=== PATIENT | male | born 1975 | race Caucasian/White ===

== ENCOUNTER 2020-08-17 12:22 | Observation (INO) ==
[2020-08-17] MEDS ORDERED: FUROSEMIDE 40 MG/4 ML VIAL IV STA (12:42)
[2020-08-17 13:09] LABS: Basophils # 0.1 10*3/uL (0.0-0.2); Basophils % 0.5 % (0.0-0.8); Eosinophils % 0.4 % (0.00-10.9); Hematocrit 36.4 VOL% (42.0-52.0); Hemoglobin 12.8 GM/DL (14.0-18.0); Immature Granulocytes % 0.6 %; Immature Granulocytes Absolute 0.06 #; Lymphocytes # 1.5 10*3/uL (1.4-4.0); Lymphocytes % 15.1 % (21.2-54.2); Mean Corpuscular HGB Conc 35.2 GM/DL (32-36); Mean Corpuscular Volume 93.8 FL (87-102); Mean Platelet Volume 11.2 FL (9.6-12.0); Monocytes % 7.6 % (1.7-12.7); Neutrophils % 75.8 % (38.7-73.9); Platelet Count 125 T/CUMM (130-400); Red Blood Count 3.88 MC/CUMM (3.8-5.5); Red Cell Distribution Width 13.7 % (9.3-17.3); White Blood Count 9.9 T/CUMM (4-12)
[2020-08-17 13:14] LABS: INR 1.2
[2020-08-17 13:27] LABS: Apearance,Urine CLEAR (Clear); Bilirubin,Urine Small mg/dL (Negative); Blood, Urine Negative (Negative); Glucose,Urine (UA) Negative (Negative); Hyaline Casts,Urine 35 /LPF (0-3); Ketones,Urine Negative (Negative); Mucus,Urine Moderate /LPF (Occasional); Nitrite,Urine Negative (Negative); Protein,Urine 30 MG/DL; RBC,Urine 1 /HPF (0-4); Squamous Epithelial Cell,Urine Occasional /HPF (0-10); Urine Color Amber (Yellow); Urine Specific Gravity 1.017 (1.001-1.035); WBC,Urine 3 /HPF (0-6)
[2020-08-17] MEDS ORDERED: SODIUM CHLORIDE 0.9% 1,000 ML IV STA (13:29)
[2020-08-17 13:43] LABS: Alanine Aminotransferase 31 U/L (16-61); Albumin 2.1 G/DL (3.4-5.0); Alkaline Phosphatase 128 U/L (45-117); Aspartate Amino Transferase 75 U/L (0-37); Blood Urea Nitrogen 5 MG/DL (7-18); Calcium 8.2 MG/DL (8.5-10.1); Estimated Glom Filtration Rate 105 ML/MIN; Glucose 151 MG/DL (74-106); Osmolality,Calculated 259.8 MOS/KG (273-304); Total Protein 8.3 G/DL (6.4-8.3)
[2020-08-17] MEDS ORDERED: cefTRIAXone 1,000 MG in SODIUM CHLORIDE 0.9% 100 ML IV STA (15:29)
[2020-08-17] MEDS ORDERED: BISACODYL 5 MG TABLET PO PRN (15:56)
[2020-08-17] MEDS ORDERED: NICOTINE 21 MG/24 HR PATCH TRANSDERM PRN (15:56)
[2020-08-17] MEDS ORDERED: DOCUSATE SODIUM 100 MG CAPSULE PO PRN (15:56)
[2020-08-17] MEDS ORDERED: MORPHINE 4 MG/1 ML VIAL IV PRN (15:56)
[2020-08-17] MEDS ORDERED: GLUCAGON 1 MG VIAL IM PRN (15:56)
[2020-08-17] MEDS ORDERED: ZALEPLON 5 MG CAPSULE PO PRN (15:56)
[2020-08-17] MEDS ORDERED: PROMETHAZINE 25 MG/1 ML VIAL IM PRN (15:56)
[2020-08-17] MEDS ORDERED: DEXTROSE 50% 25 GM/50 ML VIAL IV PRN (15:56)
[2020-08-17] MEDS ORDERED: traZODone 50 MG TABLET PO PRN (15:56)
[2020-08-17] MEDS ORDERED: diphenhydrAMINE CAP 25 MG CAPSULE PO PRN (15:56)
[2020-08-17] MEDS ORDERED: SIMETHICONE CHEW 125 MG TABLET PO PRN (15:56)
[2020-08-17] MEDS ORDERED: LACTULOSE 20 GM/30 ML UDCUP PO PRN (15:56)
[2020-08-17] MEDS ORDERED: CALCIUM CARBONATE CHEW 500 MG TABLET PO PRN (15:56)
[2020-08-17] MEDS ORDERED: ALUMINUM/MAGNES/SIMETH MAX STR 30 ML UDCUP PO PRN (15:56)
[2020-08-17] MEDS ORDERED: guaiFENesin/DM ER 600-30 MG TABLET PO PRN (15:56)
[2020-08-17] MEDS ORDERED: hydrALAZINE 20 MG/1 ML VIAL IV PRN (15:56)
[2020-08-17] MEDS ORDERED: ONDANSETRON 4 MG/2 ML VIAL IV PRN (15:56)
[2020-08-17] MEDS ORDERED: MAGNESIUM SULF RIDER 2 GM in PREMIX 1 EACH IV PRN (16:01)
[2020-08-17] MEDS ORDERED: MAGNESIUM SULF RIDER 4 GM in PREMIX 1 EACH IV PRN (16:01)
[2020-08-17] MEDS: CIPROFLOXACIN INJ 400 MG in PREMIX 1 EACH IV SCH (17:43)
[2020-08-17 18:42] LABS: Barbiturates Screen,Urine Negative (Negative); Benzodiazepines Screen,Urine Negative (Negative); Cannabinoid Screen,Urine Negative (Negative); Opiate Screen,Urine Negative (Negative); Phencyclidine Screen,Urine Negative (Negative)
[2020-08-17] MEDS: metroNIDAZOLE INJ 500 MG in PREMIX 1 EACH IV SCH (18:55)
[2020-08-17 19:22] LABS: HIV Antigen/Antibody Result Nonreactive (Nonreactive)
[2020-08-17] MEDS: METOPROLOL TARTRATE 25 MG TABLET PO SCH (20:37)
[2020-08-17] MEDS: POTASSIUM CHLORIDE 20 MEQ TABLET PO PRN ×2 (20:37→22:41)
[2020-08-17] MEDS: PANTOPRAZOLE 40 MG TABLET PO SCH (20:37)
[2020-08-17] MEDS: SPIRONOLACTONE 25 MG TABLET PO SCH (20:37)
[2020-08-17] MEDS: chlordiazePOXIDE 25 MG CAPSULE PO SCH (22:41)
[2020-08-18] MEDS: POTASSIUM CHLORIDE 20 MEQ TABLET PO PRN ×2 (00:44→02:58)
[2020-08-18] MEDS: metroNIDAZOLE INJ 500 MG in PREMIX 1 EACH IV SCH ×3 (00:45→12:56)
[2020-08-18] MEDS: CIPROFLOXACIN INJ 400 MG in PREMIX 1 EACH IV SCH (04:27)
[2020-08-18 05:19] LABS: Basophils # 0.1 10*3/uL (0.0-0.2); Basophils % 0.7 % (0.0-0.8); Eosinophils # 0.1 10*3/uL (0.0-0.87); Eosinophils % 1.2 % (0.00-10.9); Hematocrit 32.2 VOL% (42.0-52.0); Hemoglobin 11.3 GM/DL (14.0-18.0); Immature Granulocytes % 0.6 %; Immature Granulocytes Absolute 0.04 #; Lymphocytes # 1.6 10*3/uL (1.4-4.0); Lymphocytes % 23.6 % (21.2-54.2); Mean Corpuscular HGB Conc 35.1 GM/DL (32-36); Mean Platelet Volume 10.8 FL (9.6-12.0); Monocytes % 9.6 % (1.7-12.7); Neutrophils % 64.3 % (38.7-73.9); Platelet Count 106 T/CUMM (130-400); Red Blood Count 3.39 MC/CUMM (3.8-5.5); Red Cell Distribution Width 13.9 % (9.3-17.3); White Blood Count 6.9 T/CUMM (4-12)
[2020-08-18] MEDS: chlordiazePOXIDE 25 MG CAPSULE PO SCH (05:30)
[2020-08-18 05:45] LABS: Hypochromasia 1+; Microcytosis 1+; Platelet Estimate Decreased
[2020-08-18 05:47] LABS: Folate 1.6 NG/ML (5.4-24.0)
[2020-08-18 06:00] LABS: Thyroid Stimulating Hormone 4.68 uIU/ml (0.358-3.74)
[2020-08-18 06:09] LABS: Albumin 1.7 G/DL (3.4-5.0); Bilirubin,Total 2.5 MG/DL (0.2-1.0); Calcium 7.2 MG/DL (8.5-10.1); Osmolality,Calculated 265.2 MOS/KG (273-304); Risk Ratio 5.82; Total Protein 6.6 G/DL (6.4-8.3); VLDL CHOLESTEROL 20.2 MG/DL
[2020-08-18 06:27] LABS: Hepatitis B Core IgM Quant 0.27 Index; Hepatitis B Surface Ag Quant < 0.10 Index; Hepatitis B Surface Ag Result Negative (Negative); Hepatitis C Virus Ab Quant 0.19 Index; Hepatitis C Virus Ab Result Negative (Negative)
[2020-08-18] MEDS ORDERED: FUROSEMIDE 40 MG/4 ML VIAL IV SCH (08:00)
[2020-08-18] MEDS: PANTOPRAZOLE 40 MG TABLET PO SCH (08:17)
[2020-08-18] MEDS: SPIRONOLACTONE 25 MG TABLET PO SCH (08:17)
[2020-08-18] MEDS: METOPROLOL TARTRATE 25 MG TABLET PO SCH (08:17)
[2020-08-18] MEDS ORDERED: THIAMINE 100 MG TABLET PO SCH (09:00)
[2020-08-18] MEDS ORDERED: CLOPIDOGREL 75 MG TABLET PO SCH (09:00)
[2020-08-18] MEDS ORDERED: amLODIPine 10 MG TABLET PO SCH (09:00)
[2020-08-18] MEDS ORDERED: MULTIVITAMIN (CENTRUM) TABLET PO SCH (09:00)
[2020-08-18] MEDS ORDERED: FOLIC ACID 1 MG TABLET PO SCH (09:00)
[2020-08-18 09:52] LABS: Apearance,Urine CLEAR (Clear); Bacteria,Urine Occasional /HPF (Few); Bilirubin,Urine Negative (Negative); Blood, Urine Negative (Negative); Glucose,Urine (UA) Negative (Negative); Ketones,Urine Negative (Negative); Mucus,Urine Occasional /LPF (Occasional); Nitrite,Urine Negative (Negative); Protein,Urine Negative; Urine Color Amber (Yellow); WBC,Urine 1 /HPF (0-6)
[2020-08-18 10:15] LABS: % Iron Saturation 24.9 % (18-50)
[2020-08-18] MEDS ORDERED: POTASSIUM CHLORIDE 20 MEQ TABLET PO ONE (11:38)
[2020-08-18] MEDS ORDERED: IRON SUCROSE 300 MG in SODIUM CHLORIDE 0.9% 100 ML IV ONE (12:00)
[2020-08-18 12:07] LABS: Free T4 (Free Thyroxine) 1.29 NG/DL (0.76-1.46)
[2020-08-18 12:29] VITALS: BP 118/68
== END 2020-08-18 15:45 | disposition home or self-care (01) ==
LOC: N.ED 12:22 → N.EDINP 12:22 → SUATTDRO 16:05 → N.3E 16:28
PROVIDERS: ADMIT Nurse Practitioner; ATTEND Internal Medicine

== ENCOUNTER 2020-08-28 11:39 | Inpatient (IN) ==
[2020-08-28 13:21] LABS: Basophils # 0.1 10*3/uL (0.0-0.2); Basophils % 0.7 % (0.0-0.8); Eosinophils # 0.1 10*3/uL (0.0-0.87); Eosinophils % 0.6 % (0.00-10.9); Hematocrit 37.4 VOL% (42.0-52.0); Hemoglobin 12.6 GM/DL (14.0-18.0); Immature Granulocytes % 0.5 %; Immature Granulocytes Absolute 0.05 #; Lymphocytes # 1.7 10*3/uL (1.4-4.0); Lymphocytes % 17.2 % (21.2-54.2); Mean Corpuscular HGB Conc 33.7 GM/DL (32-36); Mean Corpuscular Volume 98.7 FL (87-102); Mean Platelet Volume 10.8 FL (9.6-12.0); Monocytes % 6.7 % (1.7-12.7); Neutrophils % 74.3 % (38.7-73.9); Platelet Count 210 T/CUMM (130-400); Red Blood Count 3.79 MC/CUMM (3.8-5.5); Red Cell Distribution Width 13.5 % (9.3-17.3); White Blood Count 9.7 T/CUMM (4-12)
[2020-08-28 13:32] LABS: INR 1.2; PT Patient Result 13.1 SECS (9.8-11.9)
[2020-08-28 13:54] LABS: Bilirubin,Total 2.6 MG/DL (0.2-1.0); Calcium 8.1 MG/DL (8.5-10.1); Osmolality,Calculated 269.1 MOS/KG (273-304); Total Protein 7.8 G/DL (6.4-8.3)
[2020-08-28 14:10] LABS: Bacteria,Urine Occasional /HPF (Few); Bilirubin,Urine Small mg/dL (Negative); Blood, Urine Negative (Negative); Glucose,Urine (UA) Negative (Negative); Hyaline Casts,Urine 147 /LPF (0-3); Ketones,Urine Negative (Negative); Mucus,Urine Few /LPF (Occasional); Nitrite,Urine Negative (Negative); Protein,Urine 30 MG/DL; RBC,Urine 3 /HPF (0-4); Squamous Epithelial Cell,Urine Occasional /HPF (0-10); Urine Appearance Slightly Hazy (Clear); Urine Color Amber (Yellow); Urine Specific Gravity 1.021 (1.001-1.035); WBC,Urine 19 /HPF (0-6)
[2020-08-28] MEDS ORDERED: DEXTROSE 50% 25 GM/50 ML VIAL IV PRN (14:32)
[2020-08-28] MEDS ORDERED: GLUCAGON 1 MG VIAL IM PRN (14:32)
[2020-08-28] MEDS: cefTRIAXone 1,000 MG in SYRINGE 1 EACH IV SCH (17:52)
[2020-08-28] MEDS ORDERED: METOPROLOL TARTRATE 25 MG TABLET PO SCH (21:00)
[2020-08-28] MEDS ORDERED: SPIRONOLACTONE 25 MG TABLET PO SCH (21:00)
[2020-08-28] MEDS: MORPHINE 4 MG/1 ML VIAL IV PRN (21:11)
[2020-08-28] MEDS: TAMSULOSIN 0.4 MG CAPSULE PO SCH (21:11)
[2020-08-29 05:13] LABS: Basophils % 0.6 % (0.0-0.8); Eosinophils % 0.6 % (0.00-10.9); Hematocrit 35.5 VOL% (42.0-52.0); Immature Granulocytes % 0.4 %; Immature Granulocytes Absolute 0.03 #; Lymphocytes # 1.4 10*3/uL (1.4-4.0); Lymphocytes % 19.7 % (21.2-54.2); Mean Corpuscular HGB Conc 33.8 GM/DL (32-36); Mean Corpuscular Volume 95.7 FL (87-102); Mean Platelet Volume 11.1 FL (9.6-12.0); Monocytes % 7.8 % (1.7-12.7); Neutrophils % 70.9 % (38.7-73.9); Platelet Count 168 T/CUMM (130-400); Red Blood Count 3.71 MC/CUMM (3.8-5.5); Red Cell Distribution Width 13.3 % (9.3-17.3); White Blood Count 7.1 T/CUMM (4-12)
[2020-08-29 06:03] LABS: Albumin 1.8 G/DL (3.4-5.0); Bilirubin,Total 1.7 MG/DL (0.2-1.0); Calcium 7.8 MG/DL (8.5-10.1); Total Protein 6.9 G/DL (6.4-8.3)
[2020-08-29] MEDS ORDERED: MAGNESIUM SULF RIDER 4 GM in PREMIX 1 EACH IV ONE (07:04)
[2020-08-29] MEDS ORDERED: amLODIPine 10 MG TABLET PO SCH (09:00)
[2020-08-29] MEDS: THIAMINE 100 MG TABLET PO SCH (09:33)
[2020-08-29] MEDS: FOLIC ACID 1 MG TABLET PO SCH (09:33)
[2020-08-29] MEDS: PANTOPRAZOLE 40 MG TABLET PO SCH (09:33)
[2020-08-29] MEDS: SPIRONOLACTONE 100 MG TABLET PO SCH (09:33)
[2020-08-29] MEDS: FUROSEMIDE 40 MG TABLET PO SCH (09:33)
[2020-08-29] MEDS: TAMSULOSIN 0.4 MG CAPSULE PO SCH ×2 (09:33→21:13)
[2020-08-29] MEDS: THIAMINE 200 MG/2 ML VIAL IV SCH (09:37)
[2020-08-29] MEDS: FOLIC ACID INJ 1 MG in SYRINGE 1 EACH IV SCH (10:59)
[2020-08-29] MEDS: cefTRIAXone 1,000 MG in SYRINGE 1 EACH IV SCH (15:42)
[2020-08-29] MEDS: ZOLPIDEM 5 MG TABLET PO PRN (21:13)
[2020-08-30 04:56] LABS: Basophils % 0.4 % (0.0-0.8); Eosinophils # 0.1 10*3/uL (0.0-0.87); Hematocrit 31.3 VOL% (42.0-52.0); Hemoglobin 10.9 GM/DL (14.0-18.0); Immature Granulocytes % 0.1 %; Immature Granulocytes Absolute 0.01 #; Lymphocytes # 1.5 10*3/uL (1.4-4.0); Lymphocytes % 21.4 % (21.2-54.2); Mean Corpuscular HGB Conc 34.8 GM/DL (32-36); Mean Corpuscular Volume 93.7 FL (87-102); Mean Platelet Volume 10.7 FL (9.6-12.0); Neutrophils % 69.1 % (38.7-73.9); Platelet Count 158 T/CUMM (130-400); Red Blood Count 3.34 MC/CUMM (3.8-5.5); Red Cell Distribution Width 13.2 % (9.3-17.3); White Blood Count 6.8 T/CUMM (4-12)
[2020-08-30 05:23] LABS: Albumin 1.7 G/DL (3.4-5.0); Bilirubin,Total 1.8 MG/DL (0.2-1.0); Calcium 7.9 MG/DL (8.5-10.1); Osmolality,Calculated 262.5 MOS/KG (273-304); Total Protein 6.8 G/DL (6.4-8.3)
[2020-08-30] MEDS: POTASSIUM CHLORIDE 20 MEQ TABLET PO SCH ×3 (09:04→20:53)
[2020-08-30] MEDS: MAGNESIUM OXIDE 400 MG TABLET PO SCH ×2 (09:05→20:53)
[2020-08-30] MEDS: THIAMINE 100 MG TABLET PO SCH (09:05)
[2020-08-30] MEDS: FOLIC ACID 1 MG TABLET PO SCH (09:05)
[2020-08-30] MEDS: TAMSULOSIN 0.4 MG CAPSULE PO SCH ×2 (09:06→20:54)
[2020-08-30] MEDS: SPIRONOLACTONE 100 MG TABLET PO SCH (09:06)
[2020-08-30] MEDS: FUROSEMIDE 40 MG TABLET PO SCH (09:06)
[2020-08-30] MEDS: PANTOPRAZOLE 40 MG TABLET PO SCH (09:06)
[2020-08-30] MEDS: FOLIC ACID INJ 1 MG in SYRINGE 1 EACH IV SCH (09:07)
[2020-08-30] MEDS: THIAMINE 200 MG/2 ML VIAL IV SCH (09:08)
[2020-08-30] MEDS: MORPHINE 4 MG/1 ML VIAL IV PRN ×2 (10:58→21:07)
[2020-08-30] MEDS ORDERED: ONDANSETRON 4 MG/2 ML VIAL IV PRN (11:06)
[2020-08-30] MEDS: cefTRIAXone 1,000 MG in SYRINGE 1 EACH IV SCH (15:20)
[2020-08-30] MEDS: ZOLPIDEM 5 MG TABLET PO PRN (23:34)
[2020-08-31] MEDS: POTASSIUM CHLORIDE 20 MEQ TABLET PO SCH ×2 (04:10→10:20)
[2020-08-31 05:57] LABS: Basophils % 0.3 % (0.0-0.8); Eosinophils # 0.1 10*3/uL (0.0-0.87); Eosinophils % 0.9 % (0.00-10.9); Hematocrit 33.2 VOL% (42.0-52.0); Hemoglobin 11.3 GM/DL (14.0-18.0); Immature Granulocytes % 0.5 %; Immature Granulocytes Absolute 0.05 #; Lymphocytes # 1.6 10*3/uL (1.4-4.0); Lymphocytes % 15.8 % (21.2-54.2); Mean Corpuscular Volume 94.6 FL (87-102); Mean Platelet Volume 11.2 FL (9.6-12.0); Monocytes % 7.6 % (1.7-12.7); Neutrophils % 74.9 % (38.7-73.9); Platelet Count 172 T/CUMM (130-400); Red Blood Count 3.51 MC/CUMM (3.8-5.5); Red Cell Distribution Width 13.2 % (9.3-17.3); White Blood Count 10.4 T/CUMM (4-12)
[2020-08-31 06:27] LABS: Calcium 7.9 MG/DL (8.5-10.1); Osmolality,Calculated 255.9 MOS/KG (273-304)
[2020-08-31 06:32] LABS: Albumin 1.8 G/DL (3.4-5.0); Bilirubin,Total 2.5 MG/DL (0.2-1.0); Calcium 8.1 MG/DL (8.5-10.1); Osmolality,Calculated 255.9 MOS/KG (273-304); Total Protein 7.1 G/DL (6.4-8.3)
[2020-08-31] MEDS ORDERED: ALBUMIN 25% 50 GM in PREMIX 1 EACH IV ONE (08:31)
[2020-08-31] MEDS ORDERED: POTASSIUM CHLORIDE 20 MEQ TABLET PO SCH (09:00)
[2020-08-31 10:07] LABS: Neutrophils,Peritoneal Fluid 29 %
[2020-08-31 10:08] LABS: RBC,Peritoneal Fluid 166 T/CUMM
[2020-08-31] MEDS: FOLIC ACID 1 MG TABLET PO SCH (10:13)
[2020-08-31] MEDS: TAMSULOSIN 0.4 MG CAPSULE PO SCH (10:13)
[2020-08-31] MEDS: SPIRONOLACTONE 100 MG TABLET PO SCH (10:13)
[2020-08-31] MEDS: FUROSEMIDE 40 MG TABLET PO SCH (10:13)
[2020-08-31] MEDS: THIAMINE 200 MG/2 ML VIAL IV SCH (10:14)
[2020-08-31] MEDS: MAGNESIUM OXIDE 400 MG TABLET PO SCH (10:14)
[2020-08-31] MEDS: PANTOPRAZOLE 40 MG TABLET PO SCH (10:14)
[2020-08-31] MEDS: THIAMINE 100 MG TABLET PO SCH (10:15)
[2020-08-31] MEDS ORDERED: TISSUE ADHESIVE 1 EACH APPLICATOR TOP ONE (10:15)
[2020-08-31 16:25] VITALS: BP 114/70
[2020-08-31] MEDS: cefTRIAXone 1,000 MG in SYRINGE 1 EACH IV SCH (17:13)
[2020-08-31] MEDS: FOLIC ACID INJ 1 MG in SYRINGE 1 EACH IV SCH (17:23)
== END 2020-08-31 17:50 | disposition home or self-care (01) | DRG 433 ==
LOC: N.ED 11:39 → N.EDINP 11:39 → N.TELES 17:20 → N.4E 08-30 16:21
PROVIDERS: ADMIT Hospitalist; ATTEND Hospitalist

== ENCOUNTER 2020-09-13 17:23 | Inpatient (IN) ==
[2020-09-13 19:49] LABS: Basophils # 0.1 10*3/uL (0.0-0.2); Basophils % 0.3 % (0.0-0.8); Eosinophils % 0.1 % (0.00-10.9); Hematocrit 34.5 VOL% (42.0-52.0); Hemoglobin 11.4 GM/DL (14.0-18.0); Immature Granulocytes Absolute 0.27 #; Lymphocytes # 1.9 10*3/uL (1.4-4.0); Lymphocytes % 7.4 % (21.2-54.2); Mean Corpuscular Volume 94.8 FL (87-102); Mean Platelet Volume 10.8 FL (9.6-12.0); Monocytes % 3.7 % (1.7-12.7); Neutrophils % 87.5 % (38.7-73.9); Platelet Count 168 T/CUMM (130-400); Red Blood Count 3.64 MC/CUMM (3.8-5.5); Red Cell Distribution Width 13.8 % (9.3-17.3)
[2020-09-13 19:53] LABS: Bacteria,Urine Occasional /HPF (Few); Bilirubin,Urine Negative (Negative); Blood, Urine Negative (Negative); Glucose,Urine (UA) Negative (Negative); Hyaline Casts,Urine 24 /LPF (0-3); Ketones,Urine Negative (Negative); Mucus,Urine Occasional /LPF (Occasional); Nitrite,Urine Negative (Negative); Protein,Urine Negative; RBC,Urine 1 /HPF (0-4); Squamous Epithelial Cell,Urine Occasional /HPF (0-10); Urine Appearance CLEAR (Clear); Urine Color Yellow (Yellow); Urine Specific Gravity 1.011 (1.001-1.035); Urine Urobilinogen < 2.0 EU/DL (0.2-1.0); WBC,Urine 12 /HPF (0-6)
[2020-09-13 20:17] LABS: Lymphocytes 5 % (20-55); Platelet Estimate Normal; Segmented Neutrophils 94 % (50-85); Total Cells Counted 100
[2020-09-13] MEDS ORDERED: cefTRIAXone 1,000 MG in SODIUM CHLORIDE 0.9% 100 ML IV STA (20:21)
[2020-09-13 20:26] LABS: Albumin 2.3 G/DL (3.4-5.0); Bilirubin,Total 2.2 MG/DL (0.2-1.0); Calcium 8.4 MG/DL (8.5-10.1); Osmolality,Calculated 267.8 MOS/KG (273-304); Total Protein 7.3 G/DL (6.4-8.3)
[2020-09-13] MEDS ORDERED: SODIUM CHLORIDE 0.9% 500 ML IV STA (22:00)
[2020-09-13] MEDS ORDERED: fentaNYL 100 MCG/2 ML VIAL IV STA (22:26)
[2020-09-13] MEDS ORDERED: fentaNYL 100 MCG/2 ML VIAL ONE (22:27)
[2020-09-13] MEDS ORDERED: guaiFENesin/DM ER 600-30 MG TABLET PO PRN (23:47)
[2020-09-13] MEDS ORDERED: DEXTROSE 50% 25 GM/50 ML VIAL IV PRN (23:47)
[2020-09-13] MEDS ORDERED: SIMETHICONE CHEW 125 MG TABLET PO PRN (23:47)
[2020-09-13] MEDS ORDERED: SODIUM POLYSTYRENE SULFATE 15 GM/60 ML BOTTLE PO STA (23:47)
[2020-09-13] MEDS ORDERED: ACETAMINOPHEN 325 MG TABLET PO PRN (23:47)
[2020-09-13] MEDS ORDERED: GLUCAGON 1 MG VIAL IM PRN (23:47)
[2020-09-13] MEDS ORDERED: NICOTINE 21 MG/24 HR PATCH TRANSDERM PRN (23:47)
[2020-09-13] MEDS ORDERED: DOCUSATE SODIUM 100 MG CAPSULE PO PRN (23:47)
[2020-09-13] MEDS ORDERED: diphenhydrAMINE CAP 25 MG CAPSULE PO PRN (23:47)
[2020-09-14] MEDS: SODIUM CHLORIDE 0.9% 1,000 ML IV SCH ×4 (00:30→16:05)
[2020-09-14] MEDS: ZALEPLON 5 MG CAPSULE PO PRN ×2 (01:30→21:05)
[2020-09-14] MEDS: metroNIDAZOLE INJ 500 MG in PREMIX 1 EACH IV SCH ×4 (01:30→23:56)
[2020-09-14] MEDS ORDERED: SODIUM CHLORIDE 0.9% 500 ML IV ONE (04:17)
[2020-09-14 04:56] LABS: Basophils % 0.2 % (0.0-0.8); Eosinophils % 0.2 % (0.00-10.9); Hematocrit 31.1 VOL% (42.0-52.0); Hemoglobin 10.6 GM/DL (14.0-18.0); Immature Granulocytes Absolute 0.19 #; Lymphocytes # 1.6 10*3/uL (1.4-4.0); Lymphocytes % 8.2 % (21.2-54.2); Mean Corpuscular HGB Conc 34.1 GM/DL (32-36); Mean Corpuscular Volume 94.8 FL (87-102); Mean Platelet Volume 10.9 FL (9.6-12.0); Monocytes % 4.1 % (1.7-12.7); Neutrophils % 86.3 % (38.7-73.9); Platelet Count 153 T/CUMM (130-400); Red Blood Count 3.28 MC/CUMM (3.8-5.5); Red Cell Distribution Width 13.9 % (9.3-17.3); White Blood Count 19.3 T/CUMM (4-12)
[2020-09-14 05:18] LABS: Albumin 1.9 G/DL (3.4-5.0); Bilirubin,Total 1.8 MG/DL (0.2-1.0); Calcium 8.4 MG/DL (8.5-10.1); Osmolality,Calculated 270.5 MOS/KG (273-304); Total Protein 7.1 G/DL (6.4-8.3)
[2020-09-14] MEDS ORDERED: NOREPINEPHRINE 8 MG in SODIUM CHLORIDE 0.9% 242 ML IV PRN (05:33)
[2020-09-14] MEDS ORDERED: ALBUMIN 25% 50 GM in PREMIX 1 EACH IV ONE (07:39)
[2020-09-14 08:24] LABS: INR 1.2
[2020-09-14] MEDS ORDERED: propofoL 200 MG/20 ML VIAL IV ONE (09:25)
[2020-09-14] MEDS ORDERED: LIDOCAINE 2% 5 ML VIAL ONE (09:25)
[2020-09-14] MEDS ORDERED: ETOMIDATE 40 MG/20 ML VIAL IV ONE (09:25)
[2020-09-14] MEDS ORDERED: PHENYLEPHRINE 1 MG/10 ML SYRINGE IV ONE (09:26)
[2020-09-14] MEDS: FOLIC ACID 1 MG TABLET PO SCH (11:10)
[2020-09-14] MEDS: THIAMINE 100 MG TABLET PO SCH (11:10)
[2020-09-14 11:43] LABS: Glucose,Peritoneal Fluid 108 MG/DL
[2020-09-14 12:00] LABS: Neutrophils,Peritoneal Fluid 29 %
[2020-09-14 12:05] LABS: RBC,Peritoneal Fluid 1430 T/CUMM
[2020-09-14] MEDS: PANTOPRAZOLE 40 MG TABLET PO SCH (17:40)
[2020-09-14] MEDS: cefTRIAXone 1,000 MG in SYRINGE 1 EACH IV SCH (20:54)
[2020-09-14] MEDS: ATORVASTATIN 40 MG TABLET PO SCH (20:54)
[2020-09-15] MEDS: SODIUM CHLORIDE 0.9% 1,000 ML IV SCH ×3 (00:57→07:45)
[2020-09-15 04:07] LABS: Basophils % 0.4 % (0.0-0.8); Eosinophils # 0.1 10*3/uL (0.0-0.87); Eosinophils % 0.5 % (0.00-10.9); Hematocrit 27.5 VOL% (42.0-52.0); Immature Granulocytes % 0.7 %; Immature Granulocytes Absolute 0.07 #; Lymphocytes # 1.7 10*3/uL (1.4-4.0); Lymphocytes % 16.8 % (21.2-54.2); Mean Corpuscular HGB Conc 32.7 GM/DL (32-36); Mean Corpuscular Volume 94.8 FL (87-102); Mean Platelet Volume 10.5 FL (9.6-12.0); Monocytes % 6.3 % (1.7-12.7); Neutrophils % 75.3 % (38.7-73.9); Platelet Count 149 T/CUMM (130-400); Red Cell Distribution Width 13.5 % (9.3-17.3); White Blood Count 10.1 T/CUMM (4-12)
[2020-09-15 04:21] LABS: INR 1.3; PT Patient Result 13.8 SECS (9.8-11.9)
[2020-09-15] MEDS: PANTOPRAZOLE 40 MG TABLET PO SCH ×2 (05:51→18:54)
[2020-09-15 07:26] LABS: Alanine Aminotransferase 19 U/L (16-61); Albumin 2.3 G/DL (3.4-5.0); Alkaline Phosphatase 88 U/L (45-117); Aspartate Amino Transferase 43 U/L (0-37); Blood Urea Nitrogen 15 MG/DL (7-18); Calcium 7.9 MG/DL (8.5-10.1); Estimated Glom Filtration Rate 128 ML/MIN; Glucose 81 MG/DL (74-106); Total Protein 6.4 G/DL (6.4-8.3); Troponin I < 0.015 NG/ML (0.00-0.045)
[2020-09-15] MEDS: THIAMINE 100 MG TABLET PO SCH (08:45)
[2020-09-15] MEDS: FOLIC ACID 1 MG TABLET PO SCH (08:45)
[2020-09-15] MEDS: metroNIDAZOLE INJ 500 MG in PREMIX 1 EACH IV SCH ×2 (08:45→16:34)
[2020-09-15] MEDS: SPIRONOLACTONE 100 MG TABLET PO SCH (13:35)
[2020-09-15] MEDS: ATORVASTATIN 40 MG TABLET PO SCH (21:37)
[2020-09-15] MEDS: ZALEPLON 5 MG CAPSULE PO PRN (21:37)
[2020-09-15] MEDS: cefTRIAXone 1,000 MG in SYRINGE 1 EACH IV SCH (21:37)
[2020-09-16] MEDS: metroNIDAZOLE INJ 500 MG in PREMIX 1 EACH IV SCH ×3 (00:14→17:54)
[2020-09-16 05:39] LABS: Basophils % 0.4 % (0.0-0.8); Eosinophils % 0.4 % (0.00-10.9); Hematocrit 28.1 VOL% (42.0-52.0); Hemoglobin 9.6 GM/DL (14.0-18.0); Immature Granulocytes Absolute 0.09 #; Lymphocytes # 1.7 10*3/uL (1.4-4.0); Lymphocytes % 18.4 % (21.2-54.2); Mean Corpuscular HGB Conc 34.2 GM/DL (32-36); Mean Corpuscular Volume 92.1 FL (87-102); Mean Platelet Volume 10.7 FL (9.6-12.0); Monocytes % 6.4 % (1.7-12.7); Neutrophils % 73.4 % (38.7-73.9); Platelet Count 159 T/CUMM (130-400); Red Blood Count 3.05 MC/CUMM (3.8-5.5); Red Cell Distribution Width 13.2 % (9.3-17.3); White Blood Count 9.1 T/CUMM (4-12)
[2020-09-16 05:57] LABS: Albumin 2.2 G/DL (3.4-5.0); Bilirubin,Total 1.5 MG/DL (0.2-1.0); Calcium 8.2 MG/DL (8.5-10.1); Osmolality,Calculated 263.4 MOS/KG (273-304); Total Protein 6.4 G/DL (6.4-8.3)
[2020-09-16] MEDS: PANTOPRAZOLE 40 MG TABLET PO SCH ×2 (06:17→18:36)
[2020-09-16] MEDS ORDERED: MAGNESIUM SULF RIDER 4 GM in PREMIX 1 EACH IV PRN (08:25)
[2020-09-16] MEDS ORDERED: MAGNESIUM SULF RIDER 2 GM in PREMIX 1 EACH IV PRN (08:25)
[2020-09-16] MEDS: THIAMINE 100 MG TABLET PO SCH (09:20)
[2020-09-16] MEDS: FOLIC ACID 1 MG TABLET PO SCH (09:20)
[2020-09-16] MEDS: SPIRONOLACTONE 100 MG TABLET PO SCH (09:30)
[2020-09-16] MEDS ORDERED: ALBUMIN IV ONE (13:00)
[2020-09-16] MEDS ORDERED: BISACODYL 5 MG TABLET PO ONE (16:15)
[2020-09-16] MEDS ORDERED: POLYETHYLENE GLYCOL POWDER 255 GM BOTTLE PO ONE (18:00)
[2020-09-16] MEDS: ATORVASTATIN 40 MG TABLET PO SCH (20:58)
[2020-09-16] MEDS: cefTRIAXone 1,000 MG in SYRINGE 1 EACH IV SCH (20:59)
[2020-09-16] MEDS ORDERED: MAGNESIUM CITRATE 300 ML BOTTLE PO ONE (21:00)
[2020-09-17] MEDS: metroNIDAZOLE INJ 500 MG in PREMIX 1 EACH IV SCH ×2 (01:31→10:18)
[2020-09-17 05:25] LABS: Basophils % 0.6 % (0.0-0.8); Eosinophils % 0.6 % (0.00-10.9); Hematocrit 26.2 VOL% (42.0-52.0); Hemoglobin 8.9 GM/DL (14.0-18.0); Immature Granulocytes % 0.5 %; Immature Granulocytes Absolute 0.03 #; Lymphocytes # 1.4 10*3/uL (1.4-4.0); Lymphocytes % 21.7 % (21.2-54.2); Mean Corpuscular Volume 92.3 FL (87-102); Mean Platelet Volume 10.9 FL (9.6-12.0); Monocytes % 7.5 % (1.7-12.7); Neutrophils % 69.1 % (38.7-73.9); Platelet Count 168 T/CUMM (130-400); Red Blood Count 2.84 MC/CUMM (3.8-5.5); Red Cell Distribution Width 13.1 % (9.3-17.3); White Blood Count 6.3 T/CUMM (4-12)
[2020-09-17 05:46] LABS: Albumin 3.1 G/DL (3.4-5.0); Bilirubin,Total 2.3 MG/DL (0.2-1.0); Calcium 8.5 MG/DL (8.5-10.1); Osmolality,Calculated 264.2 MOS/KG (273-304); Total Protein 6.9 G/DL (6.4-8.3)
[2020-09-17] MEDS: PANTOPRAZOLE 40 MG TABLET PO SCH (05:56)
[2020-09-17] MEDS ORDERED: MAGNESIUM CITRATE 300 ML BOTTLE PO ONE (06:00)
[2020-09-17] MEDS ORDERED: POTASSIUM CHLORIDE 10 MEQ TABLET PO SCH (09:00)
[2020-09-17] MEDS ORDERED: ETOMIDATE 20 MG/10 ML VIAL IV ONE (09:00)
[2020-09-17] MEDS ORDERED: FUROSEMIDE 20 MG TABLET PO SCH (09:00)
[2020-09-17] MEDS ORDERED: LIDOCAINE 2% 5 ML VIAL ONE (09:00)
[2020-09-17] MEDS ORDERED: propofoL 200 MG/20 ML VIAL IV ONE (09:00)
[2020-09-17] MEDS ORDERED: PHENYLEPHRINE 1 MG/10 ML SYRINGE IV ONE (09:00)
[2020-09-17] MEDS: THIAMINE 100 MG TABLET PO SCH (10:19)
[2020-09-17] MEDS: SPIRONOLACTONE 100 MG TABLET PO SCH (10:19)
[2020-09-17] MEDS: FOLIC ACID 1 MG TABLET PO SCH (10:19)
[2020-09-17 11:24] VITALS: BP 118/62
== END 2020-09-17 15:49 | disposition home health service (06) | DRG 871 ==
LOC: N.ED 17:23 → N.EDINP 23:47 → SUATTDRO 23:47 → N.ICU 09-14 00:23 → N.3E 09-15 13:59
PROVIDERS: ADMIT Hospitalist; ATTEND Internal Medicine

== ENCOUNTER 2020-10-16 17:01 | Inpatient (IN) ==
[2020-10-16 17:57] LABS: Basophils % 0.2 % (0.0-0.8); Eosinophils # 0.1 10*3/uL (0.0-0.87); Eosinophils % 0.6 % (0.00-10.9); Hematocrit 27.1 VOL% (42.0-52.0); Hemoglobin 9.3 GM/DL (14.0-18.0); Immature Granulocytes % 1.8 %; Immature Granulocytes Absolute 0.41 #; Lymphocytes % 8.8 % (21.2-54.2); Mean Corpuscular HGB Conc 34.3 GM/DL (32-36); Mean Corpuscular Volume 86.6 FL (87-102); Mean Platelet Volume 10.9 FL (9.6-12.0); Neutrophils % 83.6 % (38.7-73.9); Platelet Count 189 T/CUMM (130-400); Red Blood Count 3.13 MC/CUMM (3.8-5.5); Red Cell Distribution Width 14.3 % (9.3-17.3); White Blood Count 22.9 T/CUMM (4-12)
[2020-10-16] MEDS ORDERED: SODIUM CHLORIDE 0.9% 1,000 ML IV STA (17:58)
[2020-10-16 18:08] LABS: INR 1.4; PT Patient Result 14.3 SECS (9.8-11.9); Partial Thromboplastin Time 36.1 SECS (23.9-33.8)
[2020-10-16 18:45] LABS: Alanine Aminotransferase 30 U/L (16-61); Albumin 2.1 G/DL (3.4-5.0); Alkaline Phosphatase 281 U/L (45-117); Amylase 25 U/L (25-115); Aspartate Amino Transferase 77 U/L (0-37); Blood Urea Nitrogen 99 MG/DL (7-18); Calcium 8.7 MG/DL (8.5-10.1); Estimated Glom Filtration Rate 7 ML/MIN; Glucose 86 MG/DL (74-106); Osmolality,Calculated 267.5 MOS/KG (273-304); Total Protein 7.5 G/DL (6.4-8.3); Troponin I < 0.015 NG/ML (0.00-0.045)
[2020-10-16 18:47] LABS: Lymphocytes 8 % (20-55); Segmented Neutrophils 88 % (50-85); Total Cells Counted 100
[2020-10-16] MEDS ORDERED: cefTRIAXone 1,000 MG in SODIUM CHLORIDE 0.9% 100 ML IV STA (19:11)
[2020-10-16] MEDS ORDERED: ALBUTEROL 2.5 MG/3 ML NEB RESP TX PRN (21:39)
[2020-10-16] MEDS ORDERED: ONDANSETRON 4 MG/2 ML VIAL IV PRN (21:39)
[2020-10-16 22:17] LABS: Blood, Urine Negative (Negative); Glucose,Urine (UA) Negative (Negative); Hyaline Casts,Urine 36 /LPF (0-3); Ketones,Urine Negative (Negative); Mucus,Urine Occasional /LPF (Occasional); Nitrite,Urine Negative (Negative); Protein,Urine 30 MG/DL; RBC,Urine 7 /HPF (0-4); Squamous Epithelial Cell,Urine Occasional /HPF (0-10); Urine Appearance Slightly Hazy (Clear); Urine Color Amber (Yellow); Urine Specific Gravity 1.021 (1.001-1.035); WBC,Urine 11 /HPF (0-6)
[2020-10-16 22:18] LABS: Barbiturates Screen,Urine Negative (Negative); Benzodiazepines Screen,Urine Negative (Negative); Cannabinoid Screen,Urine Negative (Negative); Opiate Screen,Urine Negative (Negative); Phencyclidine Screen,Urine Negative (Negative)
[2020-10-16 22:20] LABS: Bilirubin,Urine Small mg/dL (Negative)
[2020-10-16] MEDS: SODIUM BICARBONATE 650 MG TABLET PO SCH (23:18)
[2020-10-16] MEDS: FAMOTIDINE 20 MG TABLET PO SCH (23:18)
[2020-10-17] MEDS ORDERED: NOREPINEPHRINE 4 MG/4 ML VIAL IV ONE (00:58)
[2020-10-17] MEDS: NOREPINEPHRINE 8 MG in SODIUM CHLORIDE 0.9% 242 ML IV PRN ×2 (01:15→06:58)
[2020-10-17] MEDS: SODIUM BICARBONATE 650 MG TABLET PO SCH ×3 (04:54→21:15)
[2020-10-17 05:02] LABS: Albumin 1.9 G/DL (3.4-5.0); Bilirubin,Total 1.8 MG/DL (0.2-1.0); Calcium 8.5 MG/DL (8.5-10.1); Osmolality,Calculated 269.3 MOS/KG (273-304); Total Protein 7.2 G/DL (6.4-8.3)
[2020-10-17 06:41] LABS: Basophils # 0.1 10*3/uL (0.0-0.2); Basophils % 0.3 % (0.0-0.8); Eosinophils # 0.1 10*3/uL (0.0-0.87); Eosinophils % 0.4 % (0.00-10.9); Hematocrit 27.5 VOL% (42.0-52.0); Hemoglobin 9.3 GM/DL (14.0-18.0); Immature Granulocytes % 2.5 %; Immature Granulocytes Absolute 0.84 #; Lymphocytes % 5.9 % (21.2-54.2); Mean Corpuscular HGB Conc 33.8 GM/DL (32-36); Mean Corpuscular Volume 86.5 FL (87-102); Mean Platelet Volume 10.3 FL (9.6-12.0); Neutrophils % 84.9 % (38.7-73.9); Platelet Count 240 T/CUMM (130-400); Red Blood Count 3.18 MC/CUMM (3.8-5.5); Red Cell Distribution Width 14.4 % (9.3-17.3); White Blood Count 33.4 T/CUMM (4-12)
[2020-10-17 07:07] LABS: Eosinophils 1 % (0-10); Lymphocytes 2 % (20-55); Platelet Estimate Normal; Segmented Neutrophils 93 % (50-85); Total Cells Counted 100
[2020-10-17] MEDS ORDERED: SODIUM CHLORIDE 0.9% 1,000 ML IV ONE (07:31)
[2020-10-17] MEDS ORDERED: SODIUM BICARBONATE 50 MEQ/50 ML VIAL IV ONE (07:33)
[2020-10-17] MEDS: SODIUM BICARB INJ 150 MEQ in DEXTROSE 5% 850 ML IV SCH ×3 (09:15→22:53)
[2020-10-17] MEDS: ALBUMIN 25% 25 GM in PREMIX 1 EACH IV SCH ×2 (09:20→16:00)
[2020-10-17] MEDS: cefTRIAXone 1,000 MG in SYRINGE 1 EACH IV SCH (09:22)
[2020-10-17] MEDS: FAMOTIDINE 20 MG TABLET PO SCH ×2 (09:22→21:15)
[2020-10-17 13:59] LABS: Calcium 7.9 MG/DL (8.5-10.1); Osmolality,Calculated 281.5 MOS/KG (273-304)
[2020-10-18] MEDS: ALBUMIN 25% 25 GM in PREMIX 1 EACH IV SCH (01:59)
[2020-10-18 05:54] LABS: Albumin 2.1 G/DL (3.4-5.0); Bilirubin,Total 1.3 MG/DL (0.2-1.0); Calcium 8.1 MG/DL (8.5-10.1); Osmolality,Calculated 291.7 MOS/KG (273-304); Total Protein 6.1 G/DL (6.4-8.3)
[2020-10-18 06:04] LABS: Basophils % 0.1 % (0.0-0.8); Eosinophils % 0.4 % (0.00-10.9); Hematocrit 21.4 VOL% (42.0-52.0); Hemoglobin 7.5 GM/DL (14.0-18.0); Immature Granulocytes % 1.1 %; Immature Granulocytes Absolute 0.11 #; Lymphocytes # 1.3 10*3/uL (1.4-4.0); Lymphocytes % 12.8 % (21.2-54.2); Mean Corpuscular Volume 82.3 FL (87-102); Mean Platelet Volume 10.2 FL (9.6-12.0); Monocytes % 8.1 % (1.7-12.7); Neutrophils % 77.5 % (38.7-73.9); Red Cell Distribution Width 14.1 % (9.3-17.3)
[2020-10-18] MEDS: SODIUM BICARB INJ 150 MEQ in DEXTROSE 5% 850 ML IV SCH ×2 (06:16→21:58)
[2020-10-18 06:21] LABS: Platelet Count 135 T/CUMM (130-400); White Blood Count 10.3 T/CUMM (4-12)
[2020-10-18] MEDS: cefTRIAXone 1,000 MG in SYRINGE 1 EACH IV SCH (08:05)
[2020-10-18] MEDS: FAMOTIDINE 20 MG TABLET PO SCH ×2 (08:08→21:21)
[2020-10-18] MEDS: SODIUM BICARBONATE 650 MG TABLET PO SCH ×2 (08:08→21:21)
[2020-10-19 04:23] LABS: Basophils % 0.3 % (0.0-0.8); Eosinophils # 0.1 10*3/uL (0.0-0.87); Eosinophils % 0.4 % (0.00-10.9); Hematocrit 21.1 VOL% (42.0-52.0); Hemoglobin 7.4 GM/DL (14.0-18.0); Immature Granulocytes % 1.1 %; Immature Granulocytes Absolute 0.16 #; Lymphocytes # 1.8 10*3/uL (1.4-4.0); Lymphocytes % 12.1 % (21.2-54.2); Mean Corpuscular HGB Conc 35.1 GM/DL (32-36); Mean Corpuscular Volume 82.7 FL (87-102); Mean Platelet Volume 10.4 FL (9.6-12.0); Neutrophils % 78.1 % (38.7-73.9); Platelet Count 130 T/CUMM (130-400); Red Blood Count 2.55 MC/CUMM (3.8-5.5); Red Cell Distribution Width 14.2 % (9.3-17.3); White Blood Count 15.2 T/CUMM (4-12)
[2020-10-19 04:49] LABS: Bilirubin,Total 2.2 MG/DL (0.2-1.0); Osmolality,Calculated 281.1 MOS/KG (273-304); Total Protein 5.8 G/DL (6.4-8.3)
[2020-10-19] MEDS: FAMOTIDINE 20 MG TABLET PO SCH ×2 (10:07→20:44)
[2020-10-19] MEDS: SODIUM CHLORIDE 0.9% 1,000 ML IV SCH (11:33)
[2020-10-19] MEDS: SODIUM BICARBONATE 650 MG TABLET PO SCH (12:50)
[2020-10-20] MEDS: SODIUM CHLORIDE 0.9% 1,000 ML IV SCH ×2 (04:49→19:51)
[2020-10-20 06:36] LABS: Basophils % 0.2 % (0.0-0.8); Eosinophils # 0.2 10*3/uL (0.0-0.87); Eosinophils % 0.7 % (0.00-10.9); Hematocrit 21.3 VOL% (42.0-52.0); Hemoglobin 7.4 GM/DL (14.0-18.0); Immature Granulocytes % 1.7 %; Immature Granulocytes Absolute 0.36 #; Lymphocytes # 2.2 10*3/uL (1.4-4.0); Lymphocytes % 10.2 % (21.2-54.2); Mean Corpuscular HGB Conc 34.7 GM/DL (32-36); Mean Corpuscular Volume 84.9 FL (87-102); Mean Platelet Volume 10.4 FL (9.6-12.0); Monocytes % 7.3 % (1.7-12.7); Neutrophils % 79.9 % (38.7-73.9); Platelet Count 116 T/CUMM (130-400); Red Blood Count 2.51 MC/CUMM (3.8-5.5); Red Cell Distribution Width 14.4 % (9.3-17.3); White Blood Count 21.1 T/CUMM (4-12)
[2020-10-20 06:44] LABS: Calcium 8.1 MG/DL (8.5-10.1); Osmolality,Calculated 281.2 MOS/KG (273-304)
[2020-10-20 07:31] LABS: Band Neutrophils 5 % (0-10); Lymphocytes 9 % (20-55); Segmented Neutrophils 81 % (50-85); Total Cells Counted 100
[2020-10-20 07:32] LABS: Anisocytosis 1+; Hypochromasia 1+; Platelet Estimate Adequate; Polychromasia Slight
[2020-10-20] MEDS ORDERED: SODIUM CHLORIDE 0.9% 1,000 ML IV PRN (07:54)
[2020-10-20] MEDS ORDERED: POTASSIUM CHLORIDE INJ 30 MEQ in SODIUM CHLORIDE 0.9% 1,000 ML IV SCH (07:55)
[2020-10-20] MEDS ORDERED: PANTOPRAZOLE 40 MG TABLET PO SCH (09:00)
[2020-10-20] MEDS: POTASSIUM CHLORIDE 20 MEQ TABLET PO PRN ×4 (09:05→17:32)
[2020-10-20] MEDS: cefTRIAXone 1,000 MG in SYRINGE 1 EACH IV SCH (12:03)
[2020-10-20 14:51] LABS: Hemoglobin 10.8 GM/DL (14.0-18.0)
[2020-10-20] MEDS: PANTOPRAZOLE 40 MG TABLET PO SCH (17:32)
[2020-10-21] MEDS: SODIUM CHLORIDE 0.9% 1,000 ML IV SCH ×2 (05:57→18:21)
[2020-10-21 06:07] LABS: Basophils % 0.2 % (0.0-0.8); Eosinophils # 0.2 10*3/uL (0.0-0.87); Eosinophils % 1.2 % (0.00-10.9); Hematocrit 25.8 VOL% (42.0-52.0); Hemoglobin 8.9 GM/DL (14.0-18.0); Immature Granulocytes % 1.4 %; Immature Granulocytes Absolute 0.27 #; Lymphocytes # 2.1 10*3/uL (1.4-4.0); Mean Corpuscular HGB Conc 34.5 GM/DL (32-36); Mean Platelet Volume 10.2 FL (9.6-12.0); Monocytes % 7.6 % (1.7-12.7); Neutrophils % 78.6 % (38.7-73.9); Platelet Count 134 T/CUMM (130-400); Red Blood Count 3.07 MC/CUMM (3.8-5.5); Red Cell Distribution Width 14.2 % (9.3-17.3); White Blood Count 19.1 T/CUMM (4-12)
[2020-10-21 06:19] LABS: Calcium 8.2 MG/DL (8.5-10.1); Osmolality,Calculated 274.4 MOS/KG (273-304)
[2020-10-21] MEDS: PANTOPRAZOLE 40 MG TABLET PO SCH ×2 (06:23→17:49)
[2020-10-21] MEDS: CLOPIDOGREL 75 MG TABLET PO SCH (09:38)
[2020-10-21] MEDS: POTASSIUM CHLORIDE 20 MEQ TABLET PO PRN (09:39)
[2020-10-21] MEDS: FOLIC ACID 1 MG TABLET PO SCH (09:39)
[2020-10-21] MEDS: THIAMINE 100 MG TABLET PO SCH (09:39)
[2020-10-21] MEDS: POTASSIUM CHLORIDE 10 MEQ TABLET PO SCH (10:57)
[2020-10-21] MEDS: cefTRIAXone 1,000 MG in SYRINGE 1 EACH IV SCH (11:00)
[2020-10-22 06:21] LABS: Basophils % 0.3 % (0.0-0.8); Eosinophils # 0.2 10*3/uL (0.0-0.87); Eosinophils % 1.4 % (0.00-10.9); Hematocrit 23.4 VOL% (42.0-52.0); Immature Granulocytes % 1.1 %; Immature Granulocytes Absolute 0.15 #; Lymphocytes # 1.4 10*3/uL (1.4-4.0); Lymphocytes % 10.8 % (21.2-54.2); Mean Corpuscular HGB Conc 34.2 GM/DL (32-36); Mean Corpuscular Volume 85.1 FL (87-102); Mean Platelet Volume 10.6 FL (9.6-12.0); Monocytes % 8.1 % (1.7-12.7); Neutrophils % 78.3 % (38.7-73.9); Platelet Count 127 T/CUMM (130-400); Red Blood Count 2.75 MC/CUMM (3.8-5.5); Red Cell Distribution Width 14.1 % (9.3-17.3); White Blood Count 13.2 T/CUMM (4-12)
[2020-10-22 06:31] LABS: INR 1.4; PT Patient Result 15.1 SECS (9.8-11.9)
[2020-10-22] MEDS: PANTOPRAZOLE 40 MG TABLET PO SCH ×2 (06:44→17:37)
[2020-10-22 06:47] LABS: Albumin 1.8 G/DL (3.4-5.0); Bilirubin,Total 2.2 MG/DL (0.2-1.0); Calcium 7.7 MG/DL (8.5-10.1); Osmolality,Calculated 277.7 MOS/KG (273-304); Total Protein 5.2 G/DL (6.4-8.3)
[2020-10-22 06:48] LABS: Albumin 1.7 G/DL (3.4-5.0); Bilirubin,Direct 1.12 MG/DL (0.0-0.20); Bilirubin,Indirect 0.9 MG/DL (0.0-1.0); Calcium 7.9 MG/DL (8.5-10.1); Osmolality,Calculated 277.7 MOS/KG (273-304); Total Protein 5.4 G/DL (6.4-8.3)
[2020-10-22] MEDS ORDERED: SODIUM CHLORIDE 0.9% 1,000 ML IV PRN (08:08)
[2020-10-22] MEDS ORDERED: ALBUMIN 25% 50 GM in PREMIX 1 EACH IV ONE (09:00)
[2020-10-22] MEDS: POTASSIUM CHLORIDE 10 MEQ TABLET PO SCH (09:01)
[2020-10-22] MEDS: FOLIC ACID 1 MG TABLET PO SCH (09:01)
[2020-10-22] MEDS: THIAMINE 100 MG TABLET PO SCH (09:01)
[2020-10-22] MEDS: CLOPIDOGREL 75 MG TABLET PO SCH (09:01)
[2020-10-22] MEDS: SODIUM CHLORIDE 0.9% 1,000 ML IV SCH ×2 (09:02→21:40)
[2020-10-22] MEDS: POTASSIUM CHLORIDE 20 MEQ TABLET PO PRN ×2 (09:06→17:37)
[2020-10-22] MEDS: cefTRIAXone 1,000 MG in SYRINGE 1 EACH IV SCH (10:14)
[2020-10-22 18:00] LABS: Hematocrit 26.5 VOL% (42.0-52.0); Hemoglobin 8.8 GM/DL (14.0-18.0)
[2020-10-22] MEDS: CEFUROXIME 500 MG TABLET PO SCH (21:39)
[2020-10-23 06:54] LABS: Basophils # 0.1 10*3/uL (0.0-0.2); Basophils % 0.6 % (0.0-0.8); Eosinophils # 0.2 10*3/uL (0.0-0.87); Eosinophils % 1.6 % (0.00-10.9); Hematocrit 26.9 VOL% (42.0-52.0); Hemoglobin 9.1 GM/DL (14.0-18.0); Immature Granulocytes % 1.2 %; Immature Granulocytes Absolute 0.13 #; Lymphocytes # 1.5 10*3/uL (1.4-4.0); Lymphocytes % 14.5 % (21.2-54.2); Mean Corpuscular HGB Conc 33.8 GM/DL (32-36); Mean Corpuscular Volume 85.9 FL (87-102); Mean Platelet Volume 10.3 FL (9.6-12.0); Monocytes % 7.8 % (1.7-12.7); Neutrophils % 74.3 % (38.7-73.9); Platelet Count 147 T/CUMM (130-400); Red Blood Count 3.13 MC/CUMM (3.8-5.5); Red Cell Distribution Width 14.4 % (9.3-17.3); White Blood Count 10.6 T/CUMM (4-12)
[2020-10-23 07:06] LABS: Calcium 8.1 MG/DL (8.5-10.1); Osmolality,Calculated 275.2 MOS/KG (273-304)
[2020-10-23] MEDS: PANTOPRAZOLE 40 MG TABLET PO SCH (07:08)
[2020-10-23 07:10] LABS: Albumin 2.2 G/DL (3.4-5.0); Bilirubin,Total 2.6 MG/DL (0.2-1.0); Calcium 8.1 MG/DL (8.5-10.1); Osmolality,Calculated 271.5 MOS/KG (273-304); Total Protein 6.1 G/DL (6.4-8.3)
[2020-10-23] MEDS: SODIUM CHLORIDE 0.9% 1,000 ML IV SCH (07:12)
[2020-10-23] MEDS: CEFUROXIME 500 MG TABLET PO SCH (09:14)
[2020-10-23] MEDS: FOLIC ACID 1 MG TABLET PO SCH (09:15)
[2020-10-23] MEDS: POTASSIUM CHLORIDE 10 MEQ TABLET PO SCH (09:15)
[2020-10-23] MEDS: THIAMINE 100 MG TABLET PO SCH (09:15)
[2020-10-23 12:06] VITALS: BP 107/57
== END 2020-10-23 14:30 | disposition home or self-care (01) | DRG 682 ==
LOC: N.ED 17:01 → SUATTDRO 19:38 → N.EDINP 19:38 → N.CC 22:49 → N.3E 10-18 11:24
PROVIDERS: ADMIT Family Medicine; ATTEND Internal Medicine

== ENCOUNTER 2020-11-12 06:00 | Inpatient (IN) ==
[2020-11-07 12:49] LABS: Basophils # 0.1 10*3/uL (0.0-0.2); Basophils % 0.7 % (0.0-0.8); Eosinophils # 0.1 10*3/uL (0.0-0.87); Eosinophils % 1.2 % (0.00-10.9); Hematocrit 26.8 VOL% (42.0-52.0); Hemoglobin 8.8 GM/DL (14.0-18.0); Immature Granulocytes % 0.7 %; Immature Granulocytes Absolute 0.06 #; Lymphocytes # 1.9 10*3/uL (1.4-4.0); Lymphocytes % 22.4 % (21.2-54.2); Mean Corpuscular HGB Conc 32.8 GM/DL (32-36); Mean Corpuscular Volume 84.8 FL (87-102); Mean Platelet Volume 11.4 FL (9.6-12.0); Monocytes % 7.7 % (1.7-12.7); Neutrophils % 67.3 % (38.7-73.9); Platelet Count 146 T/CUMM (130-400); Red Blood Count 3.16 MC/CUMM (3.8-5.5); Red Cell Distribution Width 14.4 % (9.3-17.3); White Blood Count 8.7 T/CUMM (4-12)
[2020-11-07 13:00] LABS: Albumin 2.1 G/DL (3.4-5.0); Bilirubin,Total 1.7 MG/DL (0.2-1.0); Calcium 7.8 MG/DL (8.5-10.1); Osmolality,Calculated 264.7 MOS/KG (273-304); Total Protein 6.7 G/DL (6.4-8.3)
[2020-11-07 13:05] LABS: INR 1.2; PT Patient Result 13.2 SECS (9.8-11.9); Partial Thromboplastin Time 35.2 SECS (23.9-33.8)
[2020-11-12] MEDS ORDERED: methylPREDNISolone SOD SUC 125 MG/2 ML VIAL IV ONE ×2 (07:30→08:30)
[2020-11-12] MEDS ORDERED: FAMOTIDINE 20 MG/2 ML VIAL IV ONE (07:30)
[2020-11-12] MEDS ORDERED: diphenhydrAMINE 50 MG/1 ML VIAL IV ONE (07:30)
[2020-11-12] MEDS: SODIUM CHLORIDE 0.45% 1,000 ML IV SCH (08:05)
[2020-11-12] MEDS ORDERED: LEVOFLOXACIN INJ 500 MG in PREMIX 1 EACH IV ONE (08:30)
[2020-11-12 08:34] LABS: Basophils % 0.3 % (0.0-0.8); Eosinophils # 0.1 10*3/uL (0.0-0.87); Eosinophils % 1.2 % (0.00-10.9); Hematocrit 25.7 VOL% (42.0-52.0); Hemoglobin 8.6 GM/DL (14.0-18.0); Immature Granulocytes % 0.5 %; Immature Granulocytes Absolute 0.03 #; Lymphocytes # 1.4 10*3/uL (1.4-4.0); Lymphocytes % 24.4 % (21.2-54.2); Mean Corpuscular HGB Conc 33.5 GM/DL (32-36); Mean Corpuscular Volume 82.6 FL (87-102); Mean Platelet Volume 11.2 FL (9.6-12.0); Monocytes % 7.2 % (1.7-12.7); Neutrophils % 66.4 % (38.7-73.9); Platelet Count 100 T/CUMM (130-400); Red Blood Count 3.11 MC/CUMM (3.8-5.5); Red Cell Distribution Width 14.7 % (9.3-17.3); White Blood Count 5.9 T/CUMM (4-12)
[2020-11-12 08:40] LABS: INR 1.3; PT Patient Result 13.7 SECS (9.8-11.9)
[2020-11-12 08:52] LABS: Albumin 1.8 G/DL (3.4-5.0); Calcium 7.8 MG/DL (8.5-10.1); Osmolality,Calculated 267.4 MOS/KG (273-304); Total Protein 6.6 G/DL (6.4-8.3)
[2020-11-12 09:02] LABS: Hypochromasia 1+; Lymphocytes 18 % (20-55); Microcytosis 1+; Ovalocytes Slight; Platelet Estimate Decreased; Segmented Neutrophils 77 % (50-85); Total Cells Counted 100
[2020-11-12] MEDS ORDERED: MIDAZOLAM 2 MG/2 ML VIAL ONE (09:42)
[2020-11-12] MEDS ORDERED: fentaNYL 100 MCG/2 ML VIAL ONE (09:43)
[2020-11-12] MEDS ORDERED: ALBUMIN 25% 12.5 GM/50 ML VIAL IV ONE (11:31)
[2020-11-12] MEDS ORDERED: EPINEPHrine 1 MG/ML VIAL ONE (11:36)
[2020-11-12] MEDS ORDERED: ONDANSETRON 4 MG/2 ML VIAL IV PRN (13:07)
[2020-11-12] MEDS ORDERED: MEPERIDINE 25 MG/1 ML VIAL IV PRN (13:07)
[2020-11-12] MEDS ORDERED: diphenhydrAMINE 50 MG/1 ML VIAL IV PRN (13:07)
[2020-11-12] MEDS ORDERED: PROMETHAZINE INJ 25 MG in SODIUM CHLORIDE 0.9% 50 ML IV PRN (13:07)
[2020-11-12] MEDS: PANTOPRAZOLE 40 MG TABLET PO SCH (18:23)
[2020-11-12] MEDS: LACTULOSE 20 GM/30 ML UDCUP PO SCH (20:57)
[2020-11-12] MEDS ORDERED: METOPROLOL TARTRATE 25 MG TABLET PO SCH (21:00)
[2020-11-13] MEDS: PANTOPRAZOLE 40 MG TABLET PO SCH (05:49)
[2020-11-13 06:10] LABS: Basophils % 0.1 % (0.0-0.8); Eosinophils % 0.1 % (0.00-10.9); Hematocrit 22.5 VOL% (42.0-52.0); Hemoglobin 7.8 GM/DL (14.0-18.0); Immature Granulocytes % 0.3 %; Immature Granulocytes Absolute 0.02 #; Lymphocytes # 0.8 10*3/uL (1.4-4.0); Lymphocytes % 11.3 % (21.2-54.2); Mean Corpuscular HGB Conc 34.7 GM/DL (32-36); Mean Corpuscular Volume 81.2 FL (87-102); Mean Platelet Volume 11.1 FL (9.6-12.0); Monocytes % 2.6 % (1.7-12.7); Neutrophils % 85.6 % (38.7-73.9); Red Blood Count 2.77 MC/CUMM (3.8-5.5); Red Cell Distribution Width 14.4 % (9.3-17.3); White Blood Count 7.3 T/CUMM (4-12)
[2020-11-13 06:12] LABS: Calcium 7.7 MG/DL (8.5-10.1); Osmolality,Calculated 270.4 MOS/KG (273-304); Platelet Count 88 T/CUMM (130-400)
[2020-11-13 06:29] LABS: Hypochromasia 2+; Lymphocytes 3 % (20-55); Microcytosis 1+; Ovalocytes Slight; Platelet Estimate Decreased; Segmented Neutrophils 94 % (50-85); Total Cells Counted 100
[2020-11-13 09:00] VITALS: BP 110/63
[2020-11-13] MEDS ORDERED: ASPIRIN EC 81 MG TABLET PO SCH (09:00)
[2020-11-13] MEDS: LACTULOSE 20 GM/30 ML UDCUP PO SCH (09:00)
[2020-11-13] MEDS ORDERED: THIAMINE 100 MG TABLET PO SCH (09:00)
[2020-11-13] MEDS ORDERED: FOLIC ACID 1 MG TABLET PO SCH (09:00)
[2020-11-13] MEDS: SODIUM CHLORIDE 0.45% 1,000 ML IV SCH (09:29)
== END 2020-11-13 10:15 | disposition home or self-care (01) | DRG 406 ==
LOC: N.SDSINP 06:00 → EDSTATUS 07:00 → N.SDSINP 07:19 → N.3EOUT 13:36 → N.SDSINP 13:36 → N.3E 13:36 → UNDODEPREF 11-14 14:24
PROVIDERS: ADMIT Radiology Diagnostic Radiology; ATTEND Radiology Diagnostic Radiology
PROC: IRTIPSW (2020-11-12 10:33)